=== PATIENT | male | born 2000 | race Caucasian/White ===

== ENCOUNTER 2024-03-30 15:58 | Emergency (ER) | payer OTHER, BC, SELFPAY ==
[2024-03-30 16:12] VITALS: BP 116/57; PULSE 77; RESP 16; TEMP 37.1; O2SAT 98; BMI 25.8
--- NOTE | 2024-03-30 16:52 | ED_ITS ---
<Statement entered by Tano Murillo DO - 03/30/24 22:08> Dr. Murillo: I was immediately available in the department for consultation. Documentation has been reviewed. I agree with assessment and plan. HPI - Extremity Problem General Chief complaint: Extremity Problem,Nontraumatic Stated complaint: poss pulled L leg muscle Time Seen by Provider: 03/30/24 16:52 History of Present Illness HPI Narrative: Mr. Viveros is a pleasant 24-year-old male with past medical history of ADHD who presents to the emergency department for left hamstring pain x2 days. Patient reports while chopping wood 2 days ago he noticed acute pain in his left hamstring area. States that yesterday he turned his body awkwardly which caused increasing pain in the left hamstring. He was concerned for possible strain of the muscle. He is still ambulatory and denies any difficulty with flexion or extension of the left leg or knee. No direct trauma to the area. No bruising or overlying skin changes. Related Data Previous Rx's Medication Instructions Recorded ibuprofen 600 mg tablet 600 mg PO Q8H PRN pain #21 tabs 03/30/24 methocarbamol 500 mg tablet 500 mg PO TID #15 tabs 03/30/24 Allergies Allergy/AdvReac Type Severity Reaction Status Date / Time Penicillins Allergy Verified 03/30/24 16:11 Review of Systems Review of Systems ROS Unobtainable: All systems reviewed & are unremarkable except as noted in HPI and below Exam Narrative Exam Narrative: GENERAL: 24 year old patient appears stated age. Well-developed patient, in no acute distress. HEAD: Atraumatic. Normocephalic. EYES: Extraocular motions intact. No scleral icterus. No injection or drainage. ENT: Nose without bleeding, purulent drainage. NECK: Trachea midline. CARDIOVASCULAR: Regular rate and rhythm. RESPIRATORY: Clear to auscultation. Breath sounds equal bilaterally. No wheezes, rales, or rhonchi. EXTREMITIES: No edema or joint tenderness. Mild tenderness to palpation of the posterior left thigh, specifically overlying the biceps femoris. No palpable defects felt. 5/5 bilateral knee flexion strength intact. BACK: Nontender without deformity or crepitance. No flank tenderness. NEURO: AOx3. Steady gait. SKIN: No rash or erythema of visible areas Initial Vital Signs Initial Vital Signs: Vital Signs Temperature 98.7 F 03/30/24 16:12 Pulse Rate 77 03/30/24 16:12 Respiratory Rate 16 03/30/24 16:12 Blood Pressure 116/57 L 03/30/24 16:12 Pulse Oximetry 98 03/30/24 16:12 Oxygen Delivery Method Room Air 03/30/24 16:12 Course Orders Ordered: Discontinued Medications Ketorolac Tromethamine (Ketorolac 30 Mg/Ml Vial) 30 mg IM NOW ONE Stop: 03/30/24 17:27 Last Admin: 03/30/24 17:42 Dose: 30 mg Documented By: DORYS Vital Signs Vital signs: Vital Signs - 8 hr 03/30/24 16:12 03/30/24 18:25 Temperature 98.7 F Pulse Rate 77 65 Respiratory Rate 16 18 Blood Pressure 116/57 L 109/58 L Pulse Oximetry 98 100 Oxygen Delivery Method Room Air Room Air MDM - Extremity (Nontraumatic) MDM Narrative Medical decision making narrative: 24-year-old male presents to the emergency department for left hamstring pain x2 days. Differential diagnosis includes but not limited to muscle strain, muscle tear, contusion, biceps femoris tendon rupture, etc.. On exam patient is in no acute distress, nontoxic appearing, steady gait, equal bilateral hamstring strength. Given reassuring physical exam findings, suspect patient's pain most likely related to strain of the hamstring muscle group. No emergent imaging indicated at this time. After shared decision-making, the patient was treated with Toradol for pain and an Ike wrap around the thigh for compressive support. Patient interested in a trial of muscle relaxers which I agreed to. Was prescribed Robaxin and ibuprofen. I recommended RICE therapy. Advsied follow up with primary care doctor and return to the emergency department for any new or worsening symptoms. Patient verbalized understanding of all information and is agreeable to plan. He is stable for discharge. Discharge Plan Departure Patient Disposition: Home Clinical Impression: Left hamstring muscle strain Qualifiers: Encounter type: initial encounter Qualified Code(s): S76.312A - Strain of muscle, fascia and tendon of the posterior muscle group at thigh level, left thigh, initial encounter Instructions: DI for Muscle Strain Activity Restrictions/Additional Instructions: Please rest, ice hamstring, wear compressive ike wrap, and use prescribed medications in addition to tylenol as needed. Follow up with primary care doctor and return to the ER for any new or worsening symptoms. Prescriptions: New methocarbamol 500 mg tablet 500 mg PO TID Qty: 15 0RF ibuprofen 600 mg tablet 600 mg PO Q8H PRN (Reason: pain) Qty: 21 0RF Stand Alone Forms: Patient Portal/API/Survey, Work Release Note
[2024-03-30] MEDS: KETOROLAC 30 MG/ML VIAL IM (17:42)
[2024-03-30 18:25] VITALS: BP 109/58; PULSE 65; RESP 18; O2SAT 100
== END 2024-03-30 18:33 | disposition home or self-care (01) ==
PROVIDERS: Emergency Provider Physician Assistant
DX: S76.312A Strain of muscle, fascia and tendon of the posterior muscle group at thigh level, left thigh, initial encounter (principal); X58.XXXA Exposure to other specified factors, initial encounter
CPT/HCPCS: 96372; 99283; J1885